=== PATIENT | male | born 1975 | race Two or more races ===

== ENCOUNTER 2022-09-22 11:41 | Outpatient (REF) | payer OTHER, SELFPAY ==
[2022-09-22 14:00] LABS: Alanine Aminotransferase 46 U/L (0-40); Albumin Level 4.5 g/dL (3.5-5.0); Alkaline Phosphatase 73 U/L (39-117); Anion Gap 14 (12-20); Aspartate Amino Transferase 38 U/L (5-37); Bilirubin Total 0.8 mg/dL (0.0-1.0); Blood Urea Nitrogen 19 mg/dL (9-16); Calcium 9.5 mg/dL (8.4-10.2); Carbon Dioxide 29 mmol/L (22-29); Chloride 101 mmol/L (96-108); Cholesterol 129 mg/dL; Estimated Glomerular Filt Rate > 60; Glucose Random 93 mg/dL (60-115); HDL Cholesterol 42 mg/dL; LDL Cholesterol Calculated 76 mg/dl; Potassium 3.7 mmol/L (3.3-5.1); Sodium 140 mmol/L (135-145); Triglycerides 56 mg/dL
== END 2022-09-22 11:42 | disposition home or self-care (01) ==
LOC: HO.LAB 11:41
PROVIDERS: PCP Internal Medicine; Visit Provider Internal Medicine
DX: E78.00 Pure hypercholesterolemia, unspecified (principal); I10 Essential (primary) hypertension; I83.92 Asymptomatic varicose veins of left lower extremity; M54.50 Low back pain, unspecified
CPT/HCPCS: 36415; 80053; 80061

== ENCOUNTER 2023-10-18 06:59 | Day surgery (SDC) | payer OTHER, SELFPAY ==
[2023-10-14 13:55] VITALS: BMI 29.7
--- NOTE | 2023-10-14 15:45 | P.CONAN_ITS ---
Documented by User: Deja Belle NP 10/14/23 15:45 HPI - Anesthesia Eval Consult details Narrative: 48yo M for Colonoscopy [facility] Past Medical History Medical History Pneumonia Elevated cholesterol HTN (hypertension) Surgical History Surgical History Hx of excision of mass Social History Social History Patient Tobacco Use Status: Never used Tobacco Meds Allergies Allergy/AdvReac Type Severity Reaction Status Date / Time aspirin [ASA] Allergy Intermediate SWELLING Verified 10/14/23 13:55 ibuprofen [IBUPROFEN] Allergy Intermediate SWELLING Verified 10/14/23 13:55 prednisone [PREDNISONE] Allergy Intermediate RASH Verified 10/14/23 13:55 Home Medications Medication Instructions Recorded Confirmed Last Taken Type rosuvastatin 40 mg tablet 40 mg PO DAILY 10/14/23 10/14/23 Unknown History valsartan 160 1 tab PO DAILY 10/14/23 10/14/23 Unknown History mg-hydrochlorothiazide 25 mg tablet Exam Height,Weight and Vital Signs: Height 6 ft Weight 99.337 kg Assessment and Plan Assessment Anesthesia Assessment: Chart Reviewed Documented by User: Brianda Auguste MD 10/18/23 08:56 [facility] Active Problems Active Problems: HTN Hypercholesterolemia Past Medical History Medical History Pneumonia Elevated cholesterol HTN (hypertension) Family History Family history of problems with anesthesia: No Surgical History Surgical History Hx of excision of mass History of Problems with Anesthesia: No Social History Social History Patient Tobacco Use Status: Never used Tobacco Meds Allergies Allergy/AdvReac Type Severity Reaction Status Date / Time aspirin [ASA] Allergy Intermediate SWELLING Verified 10/14/23 13:55 ibuprofen [IBUPROFEN] Allergy Intermediate SWELLING Verified 10/14/23 13:55 prednisone [PREDNISONE] Allergy Intermediate RASH Verified 10/14/23 13:55 Home Medications Medication Instructions Recorded Confirmed Last Taken Type rosuvastatin 40 mg tablet 40 mg PO DAILY 10/14/23 10/14/23 Unknown History valsartan 160 1 tab PO DAILY 10/14/23 10/14/23 Unknown History mg-hydrochlorothiazide 25 mg tablet Exam Height,Weight and Vital Signs: Height 6 ft Weight 99.337 kg Vital Signs Temp Pulse Resp BP Pulse Ox O2 Del Method 97 F 59 18 122/58 L 97 Room Air 10/18/23 07:10 10/18/23 07:10 10/18/23 07:10 10/18/23 07:10 10/18/23 07:10 10/18/23 07:10 Airway Mallampati Class: II TM Dist: >3cm Neck ROM: Full Loose/Missing/Broken Teeth: No (Denies broken, loose, missing teeth) Heart: RRR Lungs: CTAB Assessment and Plan Assessment Anesthesia Assessment: Anesthesia Plan Discussed and Chart Reviewed Final Anesthetic Review Family History of Problems with Anesthesia: No History of Problems with Anesthesia: No NPO: Yes ASA Class: II Final Preanesthetic Review: No Changes in Pt Med Stat, Meds/Allgs Chart Reviewed, Consent Obtained/Reviewed and Anes Risks/Benef Reviewed Patient Risk: Low Procedure Risk: Low Assessment/Block/Sedation in SS: Assess/Block/Sedation-SS Anesthetic Plan Anesthetic Plan: MAC: and TIVA Disposition: Standard PACU
[2023-10-18 07:10] VITALS: BP 122/58; PULSE 59; RESP 18; TEMP 36.1; O2SAT 97; BMI 29.8
[2023-10-18] MEDS: Lactated Ringers 1,000 ML 100 ML IVCONT (07:46)
--- NOTE | 2023-10-18 08:08 | MHC.SHP ---
Pre-Procedural Eval Section A - 24 Hr Update-Section A only Date of Service: 10/18/23 Section B - Complete if H&P > 30 days Chief Complaint: Encounter for screening for malignant neoplasm of Details of Present Illness: see H&P no changes Relevant Family History (Specify if Yes): No Relevant Social History: None Present Medications: see Short Stay Collaborative assessment Medical History: No relevant PMH History of Previous Operations: No relevant previous surgery Allergies: Allergies Allergy/AdvReac Type Severity Reaction Status Date / Time aspirin [ASA] Allergy Intermediate SWELLING Verified 10/14/23 13:55 ibuprofen [IBUPROFEN] Allergy Intermediate SWELLING Verified 10/14/23 13:55 prednisone [PREDNISONE] Allergy Intermediate RASH Verified 10/14/23 13:55 Review of Systems Sugical H&P ROS: Negative: Constitution, Cardiovascular, Respiratory, Neurological, Psychiatric, Hem-Onc, Allergic/Immunologic, Gastrointestinal, Genitourinary, Musculoskeletal, Integumentary, Endocrine and Eyes/Ears/Nose/Throat Exam Surgical H&P Exam: Normal: HEENT, Normal: Heart, Normal: Lungs, Normal: Extremities, Normal: Abdomen, Normal: Skin and Normal: Neurological Plan Diagnosis/Plan: Unchanged I have reviewed the history and physical and performed a pertinent physical examination on my patient. No changes have occurred unless specified. Time Spent With Patient Time: Total time managing care of this patient today ____ minutes.
[2023-10-18 08:51] VITALS: BP 98/52; PULSE 44; RESP 15; TEMP 37; O2SAT 98
[2023-10-18 09:06] VITALS: BP 131/72; PULSE 52; RESP 16; TEMP 37; O2SAT 100
--- NOTE | 2023-10-18 09:12 | OP_ITS ---
DATE OF SERVICE: 10/18/2023 SURGEON: Nicola Henry MD INDICATIONS: Colon cancer screening. PREOPERATIVE DIAGNOSIS: POSTOPERATIVE DIAGNOSIS: PROCEDURE PERFORMED: Colonoscopy to the terminal ileum. ESTIMATED BLOOD LOSS: COMPLICATIONS: ANESTHESIA: Monitored anesthesia care. ASSISTANTS: SPECIMENS: DESCRIPTION OF PROCEDURE: History and physical performed. The risks and benefits of the procedure were explained to the patient. Informed consent was obtained. The patient was placed in the left lateral decubitus position. A digital rectal exam was performed and was found to be normal. The Olympus pediatric video colonoscope was introduced into the rectum and advanced to the cecum. The cecum was identified by transillumination, palpation, and identification of ileocecal valve. Examination was performed. The scope was removed. He tolerated the procedure well and was taken to recovery area in stable condition. FINDINGS: The terminal ileum was normal. The visualized colonic mucosa was normal. The quality of the prep was good. No polyps were identified. Retroflexed examination showed small internal hemorrhoids. IMPRESSION: Normal colonoscopy. RECOMMENDATION: 1. Follow up as needed. 2. Repeat colonoscopy is recommended in 10 years for average risk individuals. MD YOSELIN Hernadez/NEERAJ / [id number]
== END 2023-10-18 09:33 | disposition home or self-care (01) ==
PROVIDERS: PCP Internal Medicine; Visit Provider Internal Medicine Gastroenterology
PROC: 0DJD8ZZ Inspection of Lower Intestinal Tract, Via Natural or Artificial Opening Endoscopic (ICD-10-PCS; CPT 45378; principal; 2023-10-18 08:20)
DX: Z12.11 Encounter for screening for malignant neoplasm of colon (principal); I10 Essential (primary) hypertension; E78.5 Hyperlipidemia, unspecified
CPT/HCPCS: 45378; J2704